=== PATIENT | male | born 1980 | race Two or more races ===

== ENCOUNTER 2022-07-19 10:15 | Emergency (ER) | payer SELFPAY ==
[2022-07-19 10:16] VITALS: BP 137/86; PULSE 68; RESP 19; TEMP 37.2; O2SAT 99; BMI 27.3
[2022-07-19 10:30] VITALS: BP 128/75; PULSE 67; RESP 16; O2SAT 99
--- NOTE | 2022-07-19 10:48 | CT_ITS ---
PROCEDURE INFORMATION: Exam: CT Abdomen And Pelvis Without Contrast Exam date and time: 07/19/2022 11:00 AM Age: 41 years old Clinical indication: Abdominal pain; Flank; Right lower quadrant (rlq); Additional info: Right flank pain TECHNIQUE: Imaging protocol: Computed tomography of the abdomen and pelvis without contrast. Radiation optimization: All CT scans at this facility use at least one of these dose optimization techniques: automated exposure control; mA and/or kV adjustment per patient size (includes targeted exams where dose is matched to clinical indication); or iterative reconstruction. COMPARISON: No relevant prior studies available. FINDINGS: Limitations: The absence of intravenous contrast limits the assessment of vascular structures, lesions and lymphadenopathy. Lungs: Lung bases are unremarkable. Liver: No focal hepatic lesions within the limits of noncontrast examination. Gallbladder and bile ducts: Gallbladder is distended without radiopaque cholelithiasis. No biliary ductal dilation. Pancreas: No peripancreatic fluid stranding. No main pancreatic ductal dilation. Spleen: No splenomegaly. Adrenal glands: The adrenal glands are normal. Kidneys and ureters: Right perinephric stranding. Moderate right hydroureteronephrosis proximal to a 4 x 7 x 5 mm calculus in the distal ureter. Stomach and bowel: bowel wall thickening or distention. Appendix: A normal appendix is identified. Intraperitoneal space: There is no evidence of free intraperitoneal or pelvic fluid. Vasculature: Aorta is nonaneurysmal. Lymph nodes: No evidence of retroperitoneal or mesenteric lymphadenopathy. Urinary bladder: Urinary bladder is unremarkable. Reproductive: Unremarkable as visualized. Bones/joints: Unremarkable. No acute fracture. Soft tissues: Unremarkable. IMPRESSION: Right perinephric stranding. Moderate right hydroureteronephrosis proximal to a 4 x 7 x 5 mm calculus in the distal ureter.
[2022-07-19 10:55] LABS: Basophils # 0.1 K/mm3 (0-0.2); Basophils % 0.4 % (0.1-2.0); Eosinophils # 0.1 K/mm3 (0.0-0.4); Eosinophils % 1.1 % (0.1-12.0); Hematocrit 43.5 % (42.0-52.0); Hemoglobin 14.3 g/dL (14.1-18.0); Lymphocytes # 1.4 K/mm3 (0.7-4.5); Lymphocytes % 10.5 % (10-50); Mean Corpuscular Hemoglobin 32.5 pg (27.0-31.2); Mean Corpuscular Volume 98.5 fl (80-94); Mean Platelet Volume 9.5 fl (7.4-10.4); Monocytes # 0.7 K/mm3 (0.1-1.0); Monocytes % 5.1 % (1.7-9.3); Neutrophils % 82.8 % (37.0-80.0); Platelet Count 313 K/mm3 (142-424); Red Blood Count 4.42 M/mm3 (4.60-6.20); Red Cell Distribution Width 13.4 % (11.5-17.5); White Blood Count 13.3 K/mm3 (4.8-10.8)
[2022-07-19 10:56] LABS: Chloride 106 mmol/L (98-107); Potassium 3.7 mmoL/L (3.5-5.1); Sodium 140 mmol/L (136-145)
[2022-07-19 10:59] LABS: Alanine Aminotransferase 42 U/L (12-78); Albumin Level 4.5 g/dl (3.5-5.0); Albumin/Globulin Ratio 1.6 (1.1-1.8); Alkaline Phosphatase 86 U/L (38-126); Amylase 82 U/L (30-110); Anion Gap 10.7 mEq/L (5-15); Aspartate Amino Transferase 37 U/L (17-59); Bilirubin,Total 0.7 mg/dl (0.2-1.3); Blood Urea Nitrogen 17 mg/dl (9-20); Calcium 8.8 mg/dl (8.4-10.2); Carbon Dioxide 27 mmol/L (22.0-30.0); Creatinine Clearance Estimated 113 mL/min (50-200); Estimated Glomerular Filt Rate 83 ml/min (>60); GFR (African American) 100 ML/MIN (>60); Globulin 2.9 g/dL (1.3-3.2); Glucose 111 mg/dl (74-100); Lipase 36 U/L (23-300); Total Protein,Serum 7.4 g/dl (6.3-8.2)
--- NOTE | 2022-07-19 11:30 | [facility].EDGENADL ---
Discharge Plan Disposition Patient Disposition: Home, Self-Care Condition: Good Prescriptions Prescriptions: New ketorolac 10 mg tablet 10 mg PO Q6H 4 Days Qty: 16 0RF ondansetron 4 mg tablet,disintegrating 4 mg PO TID PRN (Reason: nausea and vomiting) 3 Days Qty: 10 0RF tamsulosin [Flomax] 0.4 mg capsule 0.4 mg PO HS Qty: 30 0RF hydrocodone-acetaminophen 5-325 mg tablet 1 tab PO Q8H PRN (Reason: pain) Qty: 10 0RF Referrals Follow up/Referrals: Provider,Referral, MD [Primary Care Provider] - See instructions Activity Restrictions/Add. Instructions Additional Instructions/Restrictions: Medication as directed. Call urology Thursday morning. Return to ER for fever, severe pain. Clinical Impressions Clinical Impression: Hydronephrosis, Ureterolithiasis Instructions Patient Instructions: DI for Acute Abdominal Pain Discharge ED Provider: Benedicto Webb General Adult HPI General Chief complaint: Abdominal Pain Stated complaint: RT side lower abd/back pain Time Seen by Provider: 07/19/22 10:34 Mode of Arrival: Ambulatory Source of Information: Patient and Relative Limitations: No Limitations Description of Symptoms (Recalled from ER Triage Doc. by RN): c/o right flank pain that started Thursday, states he is able to urinate but it is very little. History of Present Illness HPI narrative: 41yo M without significant past medical history presents to the emergency department secondary to right flank pain. Symptoms present since Thursday. No previous episodes similar. No fever. No nausea/vomit/diarrhea. No sick contact Related Data Previous Rx's Medication Instructions Recorded hydrocodone 5 mg-acetaminophen 325 1 tab PO Q8H PRN pain #10 tabs 07/19/22 mg tablet ketorolac 10 mg tablet 10 mg PO Q6H 4 days #16 tabs 07/19/22 ondansetron 4 mg disintegrating 4 mg PO TID PRN nausea and 07/19/22 tablet vomiting 3 days #10 tabs tamsulosin 0.4 mg capsule (Flomax) 0.4 mg PO HS #30 caps 07/19/22 Allergies Allergy/AdvReac Type Severity Reaction Status Date / Time No Known Allergies Allergy Verified 07/19/22 10:48 [facility] Disclaimer: The information contained in this section may have been updated after the patient was seen, as this information can be updated by other users. Social History Smoking Status: Never smoker alcohol intake: never current occupational status: employed Travel in the last 8 weeks: None ROS Obtained: Yes Systems reviewed as appropriate & no additional complaints except as documented Physical Exam General General appearance: alert and in no apparent distress (After Toradol) Head Head exam: atraumatic Eye Eye exam: Present normal appearance ENT ENT exam: Present normal exam Neck Neck exam: Present normal inspection and full ROM Chest Chest inspection: Present normal inspection Respiratory Respiratory exam: Present normal lung sounds bilaterally; Absent respiratory distress Cardiovascular Cardiovascular exam: Present regular rate and normal rhythm Abdominal Exam Abdominal exam: Present soft; Absent distention or tenderness Extremities Exam Extremities exam: Present normal inspection Back Exam Back exam: Present normal inspection and CVA tenderness (R) Neurological Exam Neurological exam: Present alert and oriented X3 Psychiatric Psychiatric exam: Present normal affect Skin Skin exam: Present warm Lymphatic Lymphatic Findings: no adenopathy Medical Decision Making Medical Records Medical records reviewed: Yes I reviewed the patient's medical records. Benigno Inquiry Pt receiving controlled substance: Yes Benigno was queried for this patient: No Reason not queried -: Benigno login issues Risks and benefits of using a controlled substance: were discussed with pt by me Vital Signs: 07/19/22 10:16 07/19/22 10:30 07/19/22 11:31 Temperature 99.0 F Temperature Source Oral Pulse Rate 6
[2022-07-19 11:31] VITALS: BP 130/69; PULSE 71; RESP 16; O2SAT 99
[2022-07-19 11:43] LABS: Microscopic, Urine URINE MICROSCOPIC (MICROSCOPIC)
[2022-07-19 12:04] LABS: Appearance,Urine CLEAR (Clear); Bilirubin,Urine Negative (Negative); Blood, Urine 3+ (Negative); Color,Urine YELLOW (Yellow); Glucose,Urine (UA) Negative (Negative); Ketones,Urine Negative (Negative); Leukocyte Esterase,Urine Negative (Negative); Nitrate,Urine Negative (Negative); Protein,Urine Negative (Negative); Urobilinogen,Urine 0.2 EU/dl (0.2)
[2022-07-19 12:28] LABS: Bacteria,Urine Trace /lpf
[2022-07-19 12:47] VITALS: BP 128/64; PULSE 72; RESP 18; TEMP 37.2; O2SAT 99
== END 2022-07-19 12:48 | disposition home or self-care (01) ==
PROVIDERS: Emergency Provider Family Medicine
DX: N20.0 Calculus of kidney (principal); N13.30 Unspecified hydronephrosis; R10.31 Right lower quadrant pain
CPT/HCPCS: 74176; 80053; 81001; 82150; 83690; 85025; 96361; 96374; 96375; 99285; J2405